=== PATIENT | male | born 1980 | race Caucasian/White ===

== ENCOUNTER 2017-08-12 17:22 | Inpatient (IN) ==
[2017-08-12 18:59] LABS: Basophils # 0.1 K/mcL (0.0-0.2); Basophils % 0.4 %; Eosinophils # 0.1 K/mcL (0.0-0.6); Eosinophils % 0.6 %; Hematocrit 46.7 % (37.5-50.1); Hemoglobin 16.4 g/dL (12.9-16.9); Immature Granulocytes % 0.6 % (0-4); Lymphocytes # 1.9 K/mcL (0.6-4.6); Lymphocytes % 16.2 %; Mean Corpuscular HGB Conc 35.1 g/dL (31.6-35.5); Mean Corpuscular Hemoglobin 30.4 pg (28.0-33.3); Mean Corpuscular Volume 86.5 fL (83.0-100.0); Mean Platelet Volume 9.4 fL (9.4-12.4); Monocytes # 0.7 K/mcL (0.0-1.3); Monocytes % 5.9 %; Platelet Count 239 K/mcL (140-400); Red Cell Distribution Width 13.7 % (11.5-14.5); Segmented Neutrophils % 76.3 %
[2017-08-12 19:02] LABS: Neutrophils # 9.2 K/mcL (1.6-8.9)
[2017-08-12 19:12] LABS: Alanine Aminotransferase 318 Units/L (0-55); Albumin 4.4 g/dL (3.5-5.0); Albumin/Globulin Ratio 1.5 (1.1-2.2); Alkaline Phosphatase 146 Units/L (38-126); Amylase 1016 Units/L (25-125); Aspartate Amino Transferase 161 Units/L (5-34); BUN/Creatinine Ratio 15 (6-26); Bilirubin,Direct 0.6 mg/dL (0.0-0.5); Bilirubin,Indirect 1.1 mg/dL (0.0-1.2); Bilirubin,Total 1.7 mg/dL (0.2-1.2); Blood Urea Nitrogen 13 mg/dL (8-26); Calcium 9.8 mg/dL (8.6-10.8); Carbon Dioxide 24 mEq/L (19-29); Chloride 105 mEq/L (98-109); Globulin 2.9 g/dL (2.4-3.5); Glucose 94 mg/dL (70-99); Osmolality,Calculated 290 (280-300); Potassium 3.5 mEq/L (3.5-4.5); Sodium 140 mEq/L (136-145); Total Protein 7.3 g/dL (6.0-8.3); eGFR For African Americans > 60 (> 60); eGFR For Non-African Americans > 60 (> 60)
[2017-08-12] MEDS ORDERED: 0.9 % Sodium Chloride 1,000 ML IVC ONE (19:25)
[2017-08-12] MEDS ORDERED: *HR* HYDROmorphone (PF) 1 MG/ML SYRINGE IVP ONE (19:25)
[2017-08-12] MEDS ORDERED: Ondansetron 4 MG/2 ML VIAL IVP ONE (19:25)
[2017-08-12 19:27] LABS: Lipase 1570 Units/L (8-78)
[2017-08-12 19:42] LABS: Bilirubin,Urine Small (Negative); Blood,Urine Negative (Negative); Clarity,Urine Cloudy (Clear); Glucose,Urine (UA) Normal (Normal); Ketones,Urine Trace mg/dL (Negative); Leukocyte Esterase,Urine Trace (Negative); Nitrite,Urine Negative (Negative); Protein,Urine Trace mg/dL (Neg-Trace); Specific Gravity,Urine 1.024 (1.010-1.025); Urobilinogen,Urine Normal (Normal)
[2017-08-12 19:44] LABS: Bacteria,Urine None Seen per hpf (None-Few); Hyaline Casts,Urine None Seen per lpf (None-Few); RBC,Urine 0-3 per hpf (0-3); Squamous Epithelial Cell,Urine None Seen per lpf (None-Few); WBC,Urine 0-3 per hpf (0-3)
[2017-08-12 19:45] LABS: Color,Urine Amber (Yellow)
--- NOTE | 2017-08-12 19:47 | Emergency Department Note ---
Disposition Clinical Impression: Pancreatitis Disposition: Admitted As Inpatient Condition: Fair Referrals: Mohit Bowens MD [Primary Care Provider] - Forms: ED Satisfaction Letter, Work/School Release Time of Disposition: 20:59 Abdominal Pain HPI - General Chief Complaint: ED Abdominal Pain Stated Complaint: pancreatitis, sent from PCP Time Seen by Provider: 08/12/17 19:19 Source: patient Nursing Notes Reviewed: Yes Vital Signs Reviewed: Yes - History of Present Illness HPI Narrative: Epigastric pain which started last night at home gradually and is constant and there is no radiation to the back at this time but there was some earlier. Was sent here because of concern for pancreatitis based on her lab test results. The patient denies any fevers or vomiting. He does not drink alcohol. No history of similar episodes. Social history: No smoking or alcohol. Is here with his Pain Scale: 9 - Related Data Home Medications Medication Instructions Recorded Confirmed No Known Home Drugs 08/12/17 08/12/17 Allergies Allergy/AdvReac Type Severity Reaction Status Date / Time No Known Allergies Allergy Verified 08/12/17 18:06 Review of Systems: Constitutional: No fever Vision: No blurred vision ENT: No rhinorrhea Respiratory: No cough Allergic: No allergies : No blood in urine GI: No blood in stool Hematologic: No bruising Dermatologic: No skin rash Musculoskeletal: No pain in the extremities Neuro: No numbness of the extremities Abdominal Pain PMH - Past Medical History Medical history: Reports: no medical history Male Surgical History: Reports: non-contributory - Social History Smoking status: Never smoker Alcohol use: Reports: occasionally Drug use: Reports: none Physical Exam CONSTITUTIONAL: Alert and oriented X3, well-nourished, well appearing, in no apparent distress HEAD: Normocephalic; atraumatic. EYES: PERRL, no scleral icterus. NOSE: The nose is normal in appearance without rhinorrhea RESP: Normal chest excursion with respiration; breath sounds clear and equal bilaterally; no wheezes, rhonchi, or rales CARD: Regular rhythm, without murmurs, rub or gallop ABD: Non-distended; normal appearance , mild to moderate discomfort with palpation epigastric area but soft without rigidity, rebound, guarding. Elsewhere the abdomen is non-tender, soft,without rigidity, rebound or guarding SKIN: Normal for age and race; warm and dry; no apparent lesions - General Limitations: no limitations General appearance: alert, in no apparent distress Course Vital Signs Temperature 99.1 F 08/12/17 18:03 Pulse Rate 82 08/12/17 18:03 Respiratory Rate 16 08/12/17 18:03 Blood Pressure 136/100 08/12/17 18:03 O2 Sat by Pulse Oximetry 96 08/12/17 18:03 Temperature 99.1 F 08/12/17 18:03 Pulse Rate 82 08/12/17 18:03 Respiratory Rate 16 08/12/17 18:03 Blood Pressure 136/100 08/12/17 18:03 O2 Sat by Pulse Oximetry 96 08/12/17 18:03 Oxygen Delivery Oxygen Delivery Room Air Abdominal Pain - MDM Narrative Medical decision making narrative: I did review the initial labs from some mild leukocytosis, lipase is pending, ultrasound is pending. The patient does receive IV fluids and IV pain medicine. January. 1948 I did review the patient's labs showing pancreatitis and I also reviewed the ultrasound which does show cholelithiasis but not cholecystitis. Patient does need to be admitted and I did speak with the hospitalist accepted the patient for admission and we did discuss possibility of inpatient HIDA scan for a GI consultation and this will be done during the patient's hospitalization if necessary and the patient will be nothing by mouth with IV fluids and pain control 2100 - Medical Records Medical records reviewed: Yes I reviewed the patient's medical records. - Lab Data Lab results reviewed: Yes I reviewed the patient's lab results. Result diagrams: 08/12/17 18:50 08/12/17 18:50 Lab Results 08/12/17 08/12/17 08/12/17 Range/Units 18:50 18:50 19:25 WBC 12.0 H D (4.3-11.1) K/mcL RBC 5.40 (4.19-5.50) M/mcL Hgb 16.4 (12.9-16.9) g/dL Hct 46.7 (37.5-50.1) % MCV 86.5 (83.0-100.0) fL MCH 30.4 (28.0-33.3) pg MCHC 35.1 (31.6-35.5) g/dL RDW 13.7 (11.5-14.5) % Plt Count 239 (140-400) K/mcL MPV 9.4 (9.4-12.4) fL Immature Gran % 0.6 (0-4) % Seg Neutrophils % 76.3 % Lymphocytes % 16.2 % Monocytes % 5.9 % Eosinophils % 0.6 % Basophils % 0.4 % Neutrophils # 9.2 H (1.6-8.9) K/mcL Lymphocytes # 1.9 (0.6-4.6) K/mcL Monocytes # 0.7 (0.0-1.3) K/mcL Eosinophils # 0.1 (0.0-0.6) K/mcL Basophils # 0.1 (0.0-0.2) K/mcL Sodium 140 (136-145) mEq/L Potassium 3.5 (3.5-4.5) mEq/L Chloride 105 (98-109) mEq/L Carbon Dioxide 24 (19-29) mEq/L BUN 13 (8-26) mg/dL Creatinine 0.88 (0.72-1.25) mg/dL Est GFR ( Amer) > 60 (> 60) Est GFR (Non-Af Amer) > 60 (> 60) BUN/Creatinine Ratio 15 (6-26) Glucose 94 (70-99) mg/dL Calculated Osmolality 290 (280-300) Calcium 9.8 (8.6-10.8) mg/dL Total Bilirubin 1.7 H (0.2-1.2) mg/dL Direct Bilirubin 0.6 H (0.0-0.5) mg/dL Indirect Bilirubin 1.1 (0.0-1.2) mg/dL AST 161 H (5-34) Units/L ALT 318 H (0-55) Units/L Alkaline Phosphatase 146 H (38-126) Units/L Serum Total Protein 7.3 (6.0-8.3) g/dL Albumin 4.4 (3.5-5.0) g/dL Globulin 2.9 (2.4-3.5) g/dL Albumin/Globulin Ratio 1.5 (1.1-2.2) Amylase 1016 H (25-125) Units/L Lipase 1570 H (8-78) Units/L Urine Color Rosa A (Yellow) Urine Clarity Cloudy A (Clear) Urine pH 6.0 (5.0-8.0) pH Units Ur Specific [place] 1.024 (1.010-1.025) Urine Protein Trace (Neg-Trace) mg/dL Urine Glucose (UA) Normal (Normal) mg/dL Urine Ketones Trace H (Negative) mg/dL Urine Blood Negative (Negative) Urine Nitrite Negative (Negative) Urine Bilirubin Small H (Negative) Urine Urobilinogen Normal (Normal) mg/dL Ur Leukocyte Esterase Trace H (Negative) Urine Microscopic RBC 0-3 (0-3) per hpf Urine Microscopic WBC 0-3 (0-3) per hpf Ur Squamous Epith Cells None Seen (None-Few) per lpf Urine Bacteria None Seen (None-Few) per hpf Hyaline Casts None Seen (None-Few) per lpf Urine Mucus Many H (Few) Ur Culture Indicated? YES A (NO) - Radiology Data Radiology results reviewed: Yes I reviewed the patient's radiology results.
[2017-08-12 19:57] LABS: Mucus,Urine Many (Few)
[2017-08-12] MEDS ORDERED: Ondansetron 4 MG/2 ML VIAL IVP PRN (22:43)
[2017-08-12] MEDS ORDERED: Naloxone 0.4 MG/ML INJ IVP PRN (22:43)
--- NOTE | 2017-08-12 22:43 | Internal Med History&Physical ---
<Renaldo Rogers - Last Filed: 08/13/17 01:38> Date of Encounter: 08/13/17 Time of Encounter: 22:42 Assessment and Plan (1) Pancreatitis Current visit: Yes Status: Acute - Possibly secondary to gallstone obstruction. Some hepatic duct dilation seen on US. - Gallbladder US in ED showed Cholelithiasis and gallbladder wall thickening without additional secondary findings of cholecystitis. The small portion of visualized pancreas has heterogeneous parenchyma, a finding that can be seen with pancreatitis. Minimal intrahepatic biliary dilation without extrahepatic biliary dilation. - Labs show elevated total and direct bili, elevated LFTs, mild WBC elevation. - IVF, pain control, NPO - Lipid panel pending. - Surgery consult for possible cholecystectomy Qualifiers: Chronicity: acute Pancreatitis type: biliary Acute pancreatitis complication: no infection or necrosis Qualified Code(s): K85.10 - Biliary acute pancreatitis without necrosis or infection (2) Cholelithiasis Current visit: Yes Status: Acute - Gallbladder US done in ED. - Evidence of gallstones and gallbladder wall thickening - Elevated Total and direct bili, LFTs - Surgery consult in AM for possible cholecystectomy - MRCP ordered Qualifiers: Cholelithiasis location: bile duct Cholecystitis presence: without cholecystitis Biliary obstruction: without biliary obstruction Qualified Code(s): K80.50 - Calculus of bile duct without cholangitis or cholecystitis without obstruction (3) Transaminitis Current visit: Yes Status: Acute - Elevated LFTs, most likely secondary to gallstones seen on US. - No bile duct dilation seen, however intrahepatic duct dilation. - Consider HIDA scan for improved accuracy - Surgery consult placed. (4) DVT prophylaxis Current visit: Yes Status: Acute - SCDs. Holding Anticoagulation in case of surgery. Internal Medicine - H&P: HPI Chief complaint: abdominal pain Admitted From: Emergency Dept Plans for Post Hospital Care: Home History of present illness: Mr. Collado is a 37 year old male who presents to ED with a complaint of abdominal pain since last evening. He states he was sitting at home eating pizza when he began to experience sudden onset, sharp abdominal pain that has been constant since onset. He also has had nausea with 1 episode of bilious vomiting. He denies any symptoms of fevers, chills, CP, SOB, LE swelling. Last BM was yesterday morning which was normal for him. No evidence of blood or black stools. He has never experienced this before. States rare alcohol intake, no family history of pancreatitis. Mother had gallbladder removed. In the ED, vitals unremarkable. Labs show mild leukocytosis, elevated lipase/ amylase in 1500s, elevated bili and LFTs. Gallbladder US showed Cholelithiasis and gallbladder wall thickening without additional secondary findings of cholecystitis. The small portion of visualized pancreas has heterogeneous parenchyma, a finding that can be seen with pancreatitis. Minimal intrahepatic biliary dilation without extrahepatic biliary dilation. Past Med Surg Social Fam HX - Past Medical History Medical history: no medical history - Past Surgical History Surgical History: other (gastric sleeve) - Social History Smoking Status: Never smoker Alcohol use: occasionally Drug use: none - Family History Father Adopted: [place]: sherin Age: 68 Living Status: Still Living Hx Family Endocrine Disorder: Yes (diabetes) Mother Adopted: [place]: oneil Age: 65 Hx Family Endocrine Disorder: Yes (gall bladder removed) Internal Medicine - H&P: Meds No Known Home Drugs 08/12/17 [History] 3 Allergy/AdvReac Type Severity Reaction Status Date / Time No Known Allergies Allergy Verified 08/12/17 18:06 All Systems PM: A 10-system review of systems was performed and is negative for pertinent findings except as documented above in the HPI. - Constitutional Constitutional: no anorexia, no chills, no fatigue, no fever(s), no falls, no lethargy, no malaise - Cardiovascular Cardiovascular ROS IM: no chest pain, no diaphoresis, no dyspnea, no dyspnea on exertion, no palpitations - Respiratory Respiratory: no cough, no dyspnea, no dyspnea on exertion - Gastrointestinal Gastrointestinal: abdominal pain, nausea, vomiting, no change in bowel habits, no change in stool character, no coffee ground emesis, no constipation, no diarrhea, no dyspepsia, no hematemesis, no hematochezia, no loose stools, no melena - Musculoskeletal Musculoskeletal ROS IM: no muscle weakness, no numbness, no tingling - Neurological Neurological ROS: no numbness, no tingling, no weakness - Constitutional Vitals: Temp Pulse Resp BP Pulse Ox 98.4 F 65 16 166/89 91 08/12/17 21:22 08/12/17 21:22 08/12/17 21:22 08/12/17 21:22 08/12/17 21:22 Exam: Gen.: Vitals noted. No acute distress. AAOx3 HEENT: oropharynx clear, Normocephalic, atraumatic, MMM Cardiac: RRR, no murmur, +S1/S2, rare PVCs Pulmonary: CTA bilaterally, no wheezes, rales or rhonchi, equal chest expansion Abdomen: soft, mildly tender in epigastric and LLQ, BS noted, no guarding, no rebound. MSK: ROM intact, no joint swelling noted Extremities: no BLE edema, nontender calf, no cyanosis or clubbing Neuro: A&Ox3, moves all extremities, no focal deficits Psych: Appropriate mood and behavior Internal Med - H&P Results - Labs CBC & Chem 7: 08/12/17 18:50 08/12/17 18:50 <Ricci Clement - Last Filed: 08/13/17 03:13> Date of Encounter: 08/13/17 Internal Medicine - H&P: HPI History of present illness: Mr. Collado is a 37 year old male All Systems PM: A 10-system review of systems was performed and is negative for pertinent findings except as documented above in the HPI. - Constitutional Vitals: Temp Pulse Resp BP Pulse Ox 98.3 F 62 15 145/83 95 08/12/17 23:42 08/12/17 23:42 08/12/17 23:42 08/12/17 23:42 08/12/17 23:42 Internal Med - H&P Results - Labs CBC & Chem 7: 08/12/17 18:50 08/12/17 18:50 - Attending Attestation Acute gallstone pancreatitis Increase fluids to 200 mL/h Nothing by mouth, pain control, surgery consult will need to be called in the morning to consider cholecystectomy either as inpatient or outpatient Stable Protonix for GI prophylaxis. Subcutaneous heparin for DVT prophylaxis. He will be admitted as inpatient, expected to stay more than 2 midnights. Full code. Time spent on this admission 40 minutes I examined this patient and my medical decision-making was reviewed with the Resident Physician. I agree with the documented findings, disposition and treatment plan as described except to the extent set forth below.
[2017-08-12] MEDS ORDERED: 0.9 % Sodium Chloride 1,000 ML IVC SCH (22:45)
[2017-08-12] MEDS ORDERED: *HR* HYDROcodone/Acet 5/325 mg TABLET PO PRN (23:08)
[2017-08-12] MEDS ORDERED: Acetaminophen 325 MG TABLET PO PRN (23:08)
[2017-08-13] MEDS: *HR* HYDROmorphone (PF) 1 MG/ML SYRINGE IVP PRN ×2 (00:13→12:45)
[2017-08-13] MEDS ORDERED: 0.9 % Sodium Chloride 1,000 ML IVC SCH (01:23)
[2017-08-13 04:42] LABS: Basophils % 0.4 %; Eosinophils # 0.1 K/mcL (0.0-0.6); Eosinophils % 0.6 %; Hematocrit 41.1 % (37.5-50.1); Immature Granulocytes % 0.6 % (0-4); Lymphocytes # 1.8 K/mcL (0.6-4.6); Lymphocytes % 23.5 %; Mean Corpuscular HGB Conc 33.8 g/dL (31.6-35.5); Mean Corpuscular Hemoglobin 30.2 pg (28.0-33.3); Mean Corpuscular Volume 89.3 fL (83.0-100.0); Mean Platelet Volume 9.5 fL (9.4-12.4); Monocytes # 0.6 K/mcL (0.0-1.3); Monocytes % 7.5 %; Neutrophils # 5.2 K/mcL (1.6-8.9); Platelet Count 192 K/mcL (140-400); Red Cell Distribution Width 13.8 % (11.5-14.5); Segmented Neutrophils % 67.4 %
[2017-08-13 04:44] LABS: Hemoglobin 13.9 g/dL (12.9-16.9)
[2017-08-13 04:59] LABS: Alanine Aminotransferase 223 Units/L (0-55); Albumin 3.6 g/dL (3.5-5.0); Albumin/Globulin Ratio 1.5 (1.1-2.2); Alkaline Phosphatase 114 Units/L (38-126); Aspartate Amino Transferase 83 Units/L (5-34); BUN/Creatinine Ratio 19 (6-26); Bilirubin,Total 1.5 mg/dL (0.2-1.2); Blood Urea Nitrogen 15 mg/dL (8-26); Calcium 8.9 mg/dL (8.6-10.8); Carbon Dioxide 28 mEq/L (19-29); Chloride 105 mEq/L (98-109); Chol/HDL Ratio 5.5 (0-4.9); Cholesterol 149 mg/dL (< 200); Globulin 2.4 g/dL (2.4-3.5); Glucose 91 mg/dL (70-99); HDL Cholesterol 27 mg/dL (40-59); LDL Cholesterol,Calculated 103 mg/dL (0-99); Osmolality,Calculated 292 (280-300); Potassium 3.7 mEq/L (3.5-4.5); Sodium 141 mEq/L (136-145); Triglycerides 97 mg/dL (< 150); eGFR For African Americans > 60 (> 60); eGFR For Non-African Americans > 60 (> 60)
[2017-08-13] MEDS: *HR* Heparin 5,000 UNIT/ML VIAL SQ SCH ×2 (05:32→17:49)
[2017-08-13] MEDS: Pantoprazole 40 MG VIAL IVP SCH (09:21)
--- NOTE | 2017-08-13 10:55 | General Surgery Consult Note ---
<Alec Rinaldi - Last Filed: 08/13/17 14:43> Date of Encounter: 08/13/17 Time of Encounter: 10:30 Assessment and Plan (1) Pancreatitis Current Visit: Yes Status: Acute Patient's pancreatitis likely secondary to gallstone obstruction. Hepatic duct dilation seen on US. Part of the pancreas was noted to have a heterogeneous parenchyma, a finding that can be seen with pancreatitis. Labs on admission on 08/12/17: Amylase 1016, lipase 1570, AST 161, ALT 318, white count 12.0. Labs on 08/13/17: Lipase 548, White count 7.7. Plan: -Start clear liquid diet, NPO at midnight for surgery tomorrow. -0.9 saline at 125 mL per hour. -Pain control: Tylenol 650 PO q6 (pain 1-3), Percocet 5 325 PO Q4 (pain 4-6), Dilaudid 1 mg q6 for severe pain. -Zofran 4 mg IV every 6 hours. -Protonix IV 40 mg IV daily. -Repeat labs: CBC, amylase/lipase, LFTs. -Patient will be taken for cholecystectomy tomorrow. Qualifiers: Chronicity: acute Pancreatitis type: biliary Acute pancreatitis complication: no infection or necrosis Qualified Code(s): K85.10 - Biliary acute pancreatitis without necrosis or infection (2) Cholelithiasis Current Visit: Yes Status: Acute Ultrasound performed in the emergency department on 08/12/17 revealed the presence of cholelithiasis without evidence of cholecystitis. Minimal intrahepatic duct dilation. -Elevated total and direct bilirubin. -Elevated liver function tests. -Repeat AM labs. -Patient will be taken for cholecystectomy tomorrow to prevent recurrent pancreatits. Qualifiers: Cholelithiasis location: bile duct Cholecystitis presence: without cholecystitis Biliary obstruction: without biliary obstruction Qualified Code(s): K80.50 - Calculus of bile duct without cholangitis or cholecystitis without obstruction (3) Transaminitis Current Visit: Yes Status: Acute Patient had elevated liver enzymes upon admission. -Labs on 08/12/17: AST 161, ALT 318, alkaline phosphatase 146. -Labs on 08/13/17: AST 83, ALT 23, alkaline phosphatase 114. -Patient shows no signs of scleral icterus on physical examination. -Elevated LFTs are likely secondary to gallstones seen on ultrasound. -Repeat AM labs. (4) DVT prophylaxis Current Visit: Yes Status: Acute SCDs. Holding anticoagulation in preparation for surgery. History of Present Illness Consult date: 08/13/17 Reason for consult: abdominal pain History of present illness: Mr. Collado is a 37-year-old male who presented to the ED on 08/12/17 with chief complaint of epigastric abdominal pain since last evening. Patient states that his pain started when he was sitting at home and eating pizza when he began to experience a sudden sharp abdominal pain. He notes that this pain was constant , nonradiating, 06/20, localized to the mid epigastric region. Patient vomited once after he experienced this abdominal pain. Patient admits that the night prior, he had vomited once after eating boneless swings. Patient denied having any abdominal pain at that time. He did not feel nauseous after this episode. Upon arrival to the emergency department, patient still complained of sharp epigastric pain. He denied having any fever, chills, shortness of breath, or diaphoresis. He reports that his last bowel movement was 2 days ago in the morning. He denied having any dark colored stools at that time. Patient states that he has never experienced this type of pain before. He denies being a smoker. He admits to being an occasional drinker. Patient was seen on . On physical examination this morning, patient states that his symptoms have completely resolved. He denies having any abdominal pain. He denies having any fever, chills, nausea, or vomiting. Physical exam unremarkable. Patient has been passing flatus. He denies having any bowel movement this morning. Past Med Surg Social Fam HX - Past Medical History Medical history: no medical history - Past Surgical History Surgical History: other (gastric sleeve) - Social History Smoking Status: Never smoker Alcohol use: occasionally Drug use: none - Family History Father Adopted: [place]: sherin Age: 68 Living Status: Still Living Hx Family Endocrine Disorder: Yes (diabetes) Mother Adopted: [place]ina: oneil Age: 65 Hx Family Endocrine Disorder: Yes (gall bladder removed) Medications and Allergies No Known Home Drugs 08/12/17 [History] 3 Allergy/AdvReac Type Severity Reaction Status Date / Time No Known Allergies Allergy Verified 08/12/17 18:06 Review of Systems All systems PM: A 10-system review of systems was performed and is negative for pertinent findings except as documented above in the HPI. - Constitutional as per HPI, no chills, no fatigue, no fever(s), no malaise, no weakness - Cardiovascular as per HPI, no chest pain, no diaphoresis, no pedal edema, no radiating pain, no rapid heart rate, no syncope - Respiratory as per HPI, no cough, no dyspnea, no dyspnea on exertion, no wheezing - Gastrointestinal as per HPI, no abdominal pain, no early satiety General Surgery Exam Initial Vital Signs Temp Pulse Resp BP Pulse Ox 99.1 F 82 16 136/100 96 08/12/17 18:03 08/12/17 18:03 08/12/17 18:03 08/12/17 18:03 08/12/17 18:03 - General physical appearance well developed, well nourished, no distress - Eyes negative: icteric - Respiratory normal expansion, normal respiratory effort, clear to auscultation - Cardiovascular Cardiovascular exam: Present: RRR, no murmurs/rubs/gallops - Abdomen Abdomen general surgery: Present: bowel sounds present, soft, non tender - Integumentary Integumentary general surgery: Present: warm and dry - Psychiatric Psychiatric general surgery: Present: A&Ox3, appropriate, oriented to person, oriented to time, speech is normal Exam Initial Vital Signs Temp Pulse Resp BP Pulse Ox 99.1 F 82 16 136/100 96 08/12/17 18:03 08/12/17 18:03 08/12/17 18:03 08/12/17 18:03 08/12/17 18:03 - Respiratory normal expansion, normal respiratory effort, clear to percussion, clear to auscultation Results - Labs 08/13/17 04:09 08/13/17 04:09 Abnormal lab results Total Bilirubin 1.5 mg/dL (0.2-1.2) H 08/13/17 04:09 Direct Bilirubin 0.6 mg/dL (0.0-0.5) H 08/12/17 18:50 AST 83 Units/L (5-34) H 08/13/17 04:09 ALT 223 Units/L (0-55) H 08/13/17 04:09 LDL Cholesterol, Calc 103 mg/dL (0-99) H 08/13/17 04:09 HDL Cholesterol 27 mg/dL (40-59) L 08/13/17 04:09 Cholesterol/HDL Ratio 5.5 (0-4.9) H 08/13/17 04:09 Amylase 1016 Units/L (25-125) H 08/12/17 18:50 Lipase 548 Units/L (8-78) H 08/13/17 04:09 Urine Color Rosa (Yellow) A 08/12/17 19:25 Urine Clarity Cloudy (Clear) A 08/12/17 19:25 Urine Ketones Trace mg/dL (Negative) H 08/12/17 19:25 Urine Bilirubin Small (Negative) H 08/12/17 19:25 Ur Leukocyte Esterase Trace (Negative) H 08/12/17 19:25 Urine Mucus Many (Few) H 08/12/17 19:25 Ur Culture Indicated? YES (NO) A 08/12/17 19:25 Diabetes panel 08/13/17 Range/Units 04:09 Sodium 141 (136-145) mEq/L Potassium 3.7 (3.5-4.5) mEq/L Chloride 105 (98-109) mEq/L Carbon Dioxide 28 (19-29) mEq/L BUN 15 (8-26) mg/dL Creatinine 0.80 (0.72-1.25) mg/dL Glucose 91 (70-99) mg/dL Calcium 8.9 (8.6-10.8) mg/dL AST 83 H (5-34) Units/L ALT 223 H (0-55) Units/L Alkaline Phosphatase 114 (38-126) Units/L Albumin 3.6 (3.5-5.0) g/dL Triglycerides 97 (< 150) mg/dL HDL Cholesterol 27 L (40-59) mg/dL Calcium panel 08/13/17 Range/Units 04:09 Calcium 8.9 (8.6-10.8) mg/dL Albumin 3.6 (3.5-5.0) g/dL Pituitary panel 08/13/17 Range/Units 04:09 Sodium 141 (136-145) mEq/L Potassium 3.7 (3.5-4.5) mEq/L Chloride 105 (98-109) mEq/L Carbon Dioxide 28 (19-29) mEq/L BUN 15 (8-26) mg/dL Creatinine 0.80 (0.72-1.25) mg/dL Glucose 91 (70-99) mg/dL Calcium 8.9 (8.6-10.8) mg/dL Adrenal panel 08/13/17 Range/Units 04:09 Sodium 141 (136-145) mEq/L Potassium 3.7 (3.5-4.5) mEq/L Chloride 105 (98-109) mEq/L Carbon Dioxide 28 (19-29) mEq/L BUN 15 (8-26) mg/dL Creatinine 0.80 (0.72-1.25) mg/dL Glucose 91 (70-99) mg/dL Calcium 8.9 (8.6-10.8) mg/dL Total Bilirubin 1.5 H (0.2-1.2) mg/dL AST 83 H (5-34) Units/L ALT 223 H (0-55) Units/L Alkaline Phosphatase 114 (38-126) Units/L Albumin 3.6 (3.5-5.0) g/dL All other labs normal. Consult Discharge Plan - Plan Referrals: Mohit Bowens MD [Primary Care Provider] - <Bibi Anders - Last Filed: 08/14/17 18:13> Date of Encounter: 08/13/17 Assessment and Plan (1) Gallstone pancreatitis Current Visit: Yes Status: Acute discussed with patient that his US shows stones in his gallbladder and it is most likely the cause of his pancreatitis. He has no EtOH history, TG wnl, no home meds. Will plan laparoscopic cholecystectomy with cholangiograms, possible open, risks and benefits discussed and patient wishes to proceed clears today npo midnight prn pain /antiemetic control gi/dvt prophylasix am labs serial abdominal exams History of Present Illness History of present illness: patient is 37 yo male with a less than 48 hr history of epigastric pain that radiated to his back. Pain was sharp. He had nausea and emesis. No diarrhea. No fevers chills or night sweats. Due to the pain he presented to ED and was found to have pancreatitis. TG level wnl. Lipase trending down, pain improved today. US gallbladder shows cholelithiasis. Past Med Surg Social Fam HX - Past Medical History Source: patient Medical history: other (obesity) Psychiatric history: no psych history - Past Surgical History Surgical History: other (lap gastric sleeve 2010) - Social History Occupational status: employed Current living situation: Home, With Family Activity Level: Independent ambulation Review of Systems All systems PM: reviewed and no additional remarkable complaints except as stated All systems PM: A 10-system review of systems was performed and is negative for pertinent findings except as documented above in the HPI. General Surgery Exam Initial Vital Signs Temp Pulse Resp BP Pulse Ox 99.1 F 82 16 136/100 96 08/12/17 18:03 08/12/17 18:03 08/12/17 18:03 08/12/17 18:03 08/12/17 18:03 - General physical appearance well developed, well nourished, no distress - Eyes PERRL, normal ocular movement - ENT normal mucosa, normocephalic - Neck trachea midline - Respiratory normal expansion, clear to auscultation - Cardiovascular Cardiovascular exam: Present: RRR - Abdomen Abdomen general surgery: Present: bowel sounds present, soft, non tender. Absent: distended, guarding, rebound - Integumentary Integumentary general surgery: Present: warm and dry, no abnormal pigmentation - Neurologic Present: CN 2-12 grossly intact - Musculoskeletal Present: normal posture - Psychiatric Psychiatric general surgery: Present: A&Ox3, speech is normal Exam Initial Vital Signs Temp Pulse Resp BP Pulse Ox 99.1 F 82 16 136/100 96 08/12/17 18:03 08/12/17 18:03 08/12/17 18:03 08/12/17 18:03 08/12/17 18:03 Results - Labs 08/14/17 05:13 08/13/17 04:09 Abnormal lab results Total Bilirubin 2.2 mg/dL (0.2-1.2) H 08/14/17 05:13 Direct Bilirubin 0.8 mg/dL (0.0-0.5) H 08/14/17 05:13 Indirect Bilirubin 1.4 mg/dL (0.0-1.2) H 08/14/17 05:13 ALT 138 Units/L (0-55) H 08/14/17 05:13 Albumin 3.4 g/dL (3.5-5.0) L 08/14/17 05:13 LDL Cholesterol, Calc 103 mg/dL (0-99) H 08/13/17 04:09 HDL Cholesterol 27 mg/dL (40-59) L 08/13/17 04:09 Cholesterol/HDL Ratio 5.5 (0-4.9) H 08/13/17 04:09 Urine Color Rosa (Yellow) A 08/12/17 19:25 Urine Clarity Cloudy (Clear) A 08/12/17 19:25 Urine Ketones Trace mg/dL (Negative) H 08/12/17 19:25 Urine Bilirubin Small (Negative) H 08/12/17 19:25 Ur Leukocyte Esterase Trace (Negative) H 08/12/17 19:25 Urine Mucus Many (Few) H 08/12/17 19:25 Ur Culture Indicated? YES (NO) A 08/12/17 19:25 Diabetes panel 08/14/17 Range/Units 05:13 AST 30 (5-34) Units/L ALT 138 H (0-55) Units/L Alkaline Phosphatase 105 (38-126) Units/L Albumin 3.4 L (3.5-5.0) g/dL Calcium panel 08/14/17 Range/Units 05:13 Albumin 3.4 L (3.5-5.0) g/dL Adrenal panel 08/14/17 Range/Units 05:13 Total Bilirubin 2.2 H (0.2-1.2) mg/dL AST 30 (5-34) Units/L ALT 138 H (0-55) Units/L Alkaline Phosphatase 105 (38-126) Units/L Albumin 3.4 L (3.5-5.0) g/dL All other labs normal. - Imaging US - abdomen: report reviewed - Attending Attestation I examined this patient and my medical decision-making was reviewed with the Resident Physician. I agree with the documented findings, disposition and treatment plan as described except to the extent set forth below.
[2017-08-13] MEDS: 0.9 % Sodium Chloride 1,000 ML IVC SCH ×2 (12:44→21:38)
--- NOTE | 2017-08-13 14:06 | Internal Med Progress Note ---
Date of Encounter: 08/13/17 Time of Encounter: 09:35 - Assessment and plan (1) Pancreatitis Current Visit: Yes Status: Acute Assessment and plan: Acute gallstone pancreatitis. He knows CBD dilation. Consulted surgery for recommendations regarding laparoscopic cholecystectomy. Continue symptomatic care. Start clear liquids . Lipase is trending down. Qualifiers: Chronicity: acute Pancreatitis type: biliary Acute pancreatitis complication: no infection or necrosis Qualified Code(s): K85.10 - Biliary acute pancreatitis without necrosis or infection (2) Cholelithiasis Current Visit: Yes Status: Acute Assessment and plan: Will consult surgery. Patient will most likely need laparoscopic cholecystectomy. Qualifiers: Cholelithiasis location: bile duct Cholecystitis presence: without cholecystitis Biliary obstruction: without biliary obstruction Qualified Code(s): K80.50 - Calculus of bile duct without cholangitis or cholecystitis without obstruction (3) DVT prophylaxis Current Visit: Yes Status: Acute Assessment and plan: With subcutaneous heparin - Subjective Interval history: Patient is awake and alert. He feels much better today. Still has some abdominal discomfort but much improved compared to yesterday. Denies any history of alcohol abuse. The patient has not been on any chronic medications and has never had similar symptoms before. - Constitutional Vitals: Temp Pulse Resp BP Pulse Ox 97.9 F 78 16 155/97 95 08/13/17 10:52 08/13/17 10:52 08/13/17 10:52 08/13/17 10:52 08/13/17 10:52 General appearance: Present: cooperative, mild distress, A&O X 3, answers questions appropriately - Neck Neck exam general surgery: Present: supple, trachea midline. Absent: lymphadenopathy - Respiratory Respiratory exam: Present: CTAB. Absent: accessory muscle use, rales, rhonchi, wheezes - Cardiovascular Cardiovascular exam: Present: RRR, +S1, +S2. Absent: diastolic murmur, gallop, rubs, systolic murmur - GI/Abdominal GI/Abdominal exam: Present: normal bowel sounds, soft, tenderness (Epigastric), no peritoneal signs. Absent: distended - Extremities Exam Extremities exam: Present: warm, radial pulses palpable and symmetrical. Absent : calf tenderness, cyanotic, pedal edema - Neurological Exam Neurological exam: Present: alert, CN II-XII intact, oriented X3, no focal deficits, strengths equal and symetr throughout. Absent: facial droop, speech deficit Internal Medicine: Result - Labs CBC & Chem 7: 08/13/17 04:09 08/13/17 04:09 Labs: Short CBC 08/13/17 Range/Units 04:09 WBC 7.7 (4.3-11.1) K/mcL Hgb 13.9 D (12.9-16.9) g/dL Hct 41.1 (37.5-50.1) % Plt Count 192 (140-400) K/mcL Neutrophils # 5.2 (1.6-8.9) K/mcL BMP 08/13/17 04:09 Sodium 141 Potassium 3.7 Chloride 105 Carbon Dioxide 28 BUN 15 Creatinine 0.80 Glucose 91 Calcium 8.9 Liver Function 08/13/17 Range/Units 04:09 Total Bilirubin 1.5 H (0.2-1.2) mg/dL AST 83 H (5-34) Units/L ALT 223 H (0-55) Units/L Alkaline Phosphatase 114 (38-126) Units/L Albumin 3.6 (3.5-5.0) g/dL Consult Discharge Plan - Plan Referrals: Mohit Bowens MD [Primary Care Provider] -
[2017-08-13] MEDS ORDERED: Temazepam 15 MG CAPSULE PO ONE (21:56)
[2017-08-14 05:27] LABS: Basophils % 0.5 %; Eosinophils # 0.1 K/mcL (0.0-0.6); Eosinophils % 0.9 %; Hematocrit 40.3 % (37.5-50.1); Immature Granulocytes % 0.8 % (0-4); Lymphocytes # 1.8 K/mcL (0.6-4.6); Lymphocytes % 22.9 %; Mean Corpuscular HGB Conc 34.7 g/dL (31.6-35.5); Mean Corpuscular Hemoglobin 30.2 pg (28.0-33.3); Mean Corpuscular Volume 86.9 fL (83.0-100.0); Mean Platelet Volume 9.4 fL (9.4-12.4); Monocytes # 0.6 K/mcL (0.0-1.3); Monocytes % 7.8 %; Neutrophils # 5.2 K/mcL (1.6-8.9); Platelet Count 184 K/mcL (140-400); Red Blood Count 4.64 M/mcL (4.19-5.50); Red Cell Distribution Width 13.1 % (11.5-14.5); Segmented Neutrophils % 67.1 %
[2017-08-14 05:41] LABS: Albumin 3.4 g/dL (3.5-5.0); Albumin/Globulin Ratio 1.2 (1.1-2.2); Bilirubin,Direct 0.8 mg/dL (0.0-0.5); Bilirubin,Indirect 1.4 mg/dL (0.0-1.2); Bilirubin,Total 2.2 mg/dL (0.2-1.2); Globulin 2.9 g/dL (2.4-3.5); Total Protein 6.3 g/dL (6.0-8.3)
[2017-08-14] MEDS: *HR* Heparin 5,000 UNIT/ML VIAL SQ SCH ×2 (06:14→17:46)
[2017-08-14] MEDS: 0.9 % Sodium Chloride 1,000 ML IVC SCH ×2 (08:02→16:40)
[2017-08-14] MEDS: Pantoprazole 40 MG VIAL IVP SCH (08:03)
[2017-08-14] MEDS ORDERED: *HR* Midazolam HCl 2 MG/2 ML VIAL ONE (09:12)
[2017-08-14] MEDS ORDERED: *HR* Succinylcholine 200 MG/10 ML VIAL IVP ONE (09:12)
[2017-08-14] MEDS ORDERED: *HR* FentaNYL (PF) 100 MCG/2 ML VIAL ONE (09:12)
[2017-08-14] MEDS ORDERED: Lidocaine -MPF 2% 2 ML VIAL ONE (09:12)
[2017-08-14] MEDS ORDERED: Lidocaine -MPF 4% 5 ML AMPUL ONE (09:12)
[2017-08-14] MEDS ORDERED: *HR* Propofol 200 MG/20 ML VIAL IVP ONE (09:13)
--- NOTE | 2017-08-14 11:14 | General Surgery Progress Note ---
<Alec Rinaldi - Last Filed: 08/14/17 11:18> Date of Encounter: 08/14/17 Time of Encounter: 10:00 - Assessment and Plan (1) Pancreatitis Current Visit: Yes Status: Acute Patient's pancreatitis likely secondary to gallstone obstruction. Hepatic duct dilation seen on US. Part of the pancreas was noted to have a heterogeneous parenchyma, a finding that can be seen with pancreatitis. Labs on admission on 08/12/17: Amylase 1016, lipase 1570, AST 161, ALT 318, white count 12.0. Labs on 08/13/17: Lipase 548, White count 7.7. Labs on 08/14/17: Lipase 68, amylase 109, white count 7.7, AST 30, ALT 138. Plan: -Patient NPO. Plan for surgery today. -0.9 saline at 125 mL per hour. -Pain control: Tylenol 650 PO q6 (pain 1-3), Percocet 5 325 PO Q4 (pain 4-6), Dilaudid 1 mg q6 for severe pain. -Zofran 4 mg IV every 6 hours. -Protonix IV 40 mg IV daily. -Patient will be taken for cholecysectomy for the prevention of recurrent pancreatitis. Qualifiers: Chronicity: acute Pancreatitis type: biliary Acute pancreatitis complication: no infection or necrosis Qualified Code(s): K85.10 - Biliary acute pancreatitis without necrosis or infection (2) Cholelithiasis Current Visit: Yes Status: Acute Ultrasound performed in the emergency department on 08/12/17 revealed the presence of cholelithiasis without evidence of cholecystitis. Minimal intrahepatic duct dilation. -Bilirubin levels on 08/14/17: Total bilirubin 2.2, direct bilirubin 0.8. -Patient will need cholecystectomy to prevent recurrent pancreatitis. Qualifiers: Cholelithiasis location: bile duct Cholecystitis presence: without cholecystitis Biliary obstruction: without biliary obstruction Qualified Code(s): K80.50 - Calculus of bile duct without cholangitis or cholecystitis without obstruction (3) Transaminitis Current Visit: Yes Status: Acute Patient had elevated liver enzymes upon admission. -Labs on 08/12/17: AST 161, ALT 318, alkaline phosphatase 146. -Labs on 08/13/17: AST 83, ALT 23, alkaline phosphatase 114. -Patient shows no signs of scleral icterus on physical examination. -Elevated LFTs are likely secondary to gallstones seen on ultrasound. -Labs on 08/14/17: AST 30, Alt 138. (4) DVT prophylaxis Current Visit: Yes Status: Acute SCDs. Holding anticoagulation in preparation for surgery. Subjective Patient reports: no new complaints, feels better Narrative: Patient was seen and examined at bedside this morning. He reports that he is feeling much better today. Patient denies having any nausea or vomiting. He says that his abdominal pain has completely subsided. Physical exam unremarkable. He has no complaints at this time. Objective Vital Signs - Last 8 Hours Temp Pulse Resp BP Pulse Ox 08/14/17 06:44 97.8 F 87 18 149/96 97 08/14/17 04:35 98.9 F 76 15 146/89 97 Intake and Output 08/13/17 08/14/17 08/14/17 23:59 07:59 15:59 Intake Total 1000 / 1000 1000 / 1000 Output Total 0 / 0 900 / 900 Balance 1000 / 1000 100 / 100 Intake: IV Fluids 1000 / 1000 1000 / 1000 0.9 % Sodium Chloride 1,000 ML 1000 / 1000 1000 / 1000 @ 100 mls/hr IVC .Q10H [facility] Rx#: [id number] Oral 0 / 0 0 / 0 Output: Urine 0 / 0 900 / 900 Other: Weight 106.9 kg Blood Glucose* 82 Patient Weight 08/14/17 23:59 Weight 106.9 kg - General physical appearance well developed, well nourished, no distress - Neck Neck exam: no masses, trachea midline, no lymphadectomy - Cardiovascular Cardiovascular exam: Present: RRR, no murmurs/rubs/gallops - Abdomen Abdomen: Present: bowel sounds present, soft, non tender Additional Comments: No tenderness to palpation - Labs 08/14/17 05:13 08/13/17 04:09 Diabetes panel 08/14/17 Range/Units 05:13 AST 30 (5-34) Units/L ALT 138 H (0-55) Units/L Alkaline Phosphatase 105 (38-126) Units/L Albumin 3.4 L (3.5-5.0) g/dL Calcium panel 08/14/17 Range/Units 05:13 Albumin 3.4 L (3.5-5.0) g/dL Adrenal panel 08/14/17 Range/Units 05:13 Total Bilirubin 2.2 H (0.2-1.2) mg/dL AST 30 (5-34) Units/L ALT 138 H (0-55) Units/L Alkaline Phosphatase 105 (38-126) Units/L Albumin 3.4 L (3.5-5.0) g/dL Consult Discharge Plan - Plan Referrals: Mohit Bowens MD [Primary Care Provider] - <Bibi Anders - Last Filed: 08/14/17 18:08> Date of Encounter: 08/14/17 - Assessment and Plan (1) Gallstone pancreatitis Current Visit: Yes Status: Acute planning OR today for laparoscopic cholecystomy with intraop cholangiograms, discussed yesterday with patient Objective Vital Signs - Last 8 Hours Temp Pulse Resp BP Pulse Ox 08/14/17 15:50 97.4 F L 79 16 138/82 96 08/14/17 15:37 97.7 F 80 12 135/92 98 08/14/17 15:27 78 12 130/88 97 08/14/17 15:17 72 12 137/93 97 08/14/17 15:07 97.1 F L 73 12 138/88 97 08/14/17 14:57 87 12 133/86 99 08/14/17 14:47 83 12 133/92 95 08/14/17 14:37 97.8 F 86 12 127/90 98 08/14/17 11:23 98.8 F 79 16 149/97 95 Intake and Output 08/14/17 08/14/17 08/14/17 07:59 15:59 23:59 Intake Total 1000 / 1000 Output Total 900 / 900 Balance 100 / 100 -30 / -30 Intake: IV Fluids 1000 / 1000 0.9 % Sodium Chloride 1,000 ML 1000 / 1000 @ 100 mls/hr IVC .Q10H [facility] Rx#: [id number] Mefoxin 2,000 MG In Water for inj. (sterile) 10 ML @ 150 mls/ hr IVP Q8HR [facility] Rx#:[id number] Oral 0 / 0 Output: Urine 900 / 900 Estimated Blood Loss 30 Other: Meal NPO Weight 106.9 kg Blood Glucose* 82 77 Patient Weight 08/14/17 23:59 Weight 106.9 kg - Labs 08/14/17 05:13 08/13/17 04:09 Diabetes panel 08/14/17 Range/Units 05:13 AST 30 (5-34) Units/L ALT 138 H (0-55) Units/L Alkaline Phosphatase 105 (38-126) Units/L Albumin 3.4 L (3.5-5.0) g/dL Calcium panel 08/14/17 Range/Units 05:13 Albumin 3.4 L (3.5-5.0) g/dL Adrenal panel 08/14/17 Range/Units 05:13 Total Bilirubin 2.2 H (0.2-1.2) mg/dL AST 30 (5-34) Units/L ALT 138 H (0-55) Units/L Alkaline Phosphatase 105 (38-126) Units/L Albumin 3.4 L (3.5-5.0) g/dL - Attending Attestation I examined this patient and my medical decision-making was reviewed with the Resident Physician. I agree with the documented findings, disposition and treatment plan as described except to the extent set forth below.
--- NOTE | 2017-08-14 12:09 | Anesthesia Evaluation PreOp ---
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 Other Medical History: Denies Any Significant HX Anesthesia History: No Prior Anesthetic Complications, Past Anesthesia ( Bariatric Gastric sleeve 2010) Alcohol Use: occasionally Drug use: none Medications and Allergies No Known Home Drugs 08/12/17 [History] 3 Allergy/AdvReac Type Severity Reaction Status Date / Time No Known Allergies Allergy Verified 08/12/17 18:06 - Meds/Allergy Pre-op Review Medications Reviewed: Yes Allergies Reviewed: Yes Beta Blockers on Current Med List: No Anesthesia Results - Labs 08/14/17 05:13 08/13/17 04:09 Laboratory Results WBC 7.7 K/mcL (4.3-11.1) 08/14/17 05:13 RBC 4.64 M/mcL (4.19-5.50) 08/14/17 05:13 Hgb 14.0 g/dL (12.9-16.9) 08/14/17 05:13 Hct 40.3 % (37.5-50.1) 08/14/17 05:13 MCV 86.9 fL (83.0-100.0) 08/14/17 05:13 MCH 30.2 pg (28.0-33.3) 08/14/17 05:13 MCHC 34.7 g/dL (31.6-35.5) 08/14/17 05:13 RDW 13.1 % (11.5-14.5) 08/14/17 05:13 Plt Count 184 K/mcL (140-400) 08/14/17 05:13 MPV 9.4 fL (9.4-12.4) 08/14/17 05:13 Immature Gran % 0.8 % (0-4) 08/14/17 05:13 Seg Neutrophils % 67.1 % 08/14/17 05:13 Lymphocytes % 22.9 % 08/14/17 05:13 Monocytes % 7.8 % 08/14/17 05:13 Eosinophils % 0.9 % 08/14/17 05:13 Basophils % 0.5 % 08/14/17 05:13 Neutrophils # 5.2 K/mcL (1.6-8.9) 08/14/17 05:13 Lymphocytes # 1.8 K/mcL (0.6-4.6) 08/14/17 05:13 Monocytes # 0.6 K/mcL (0.0-1.3) 08/14/17 05:13 Eosinophils # 0.1 K/mcL (0.0-0.6) 08/14/17 05:13 Basophils # 0.0 K/mcL (0.0-0.2) 08/14/17 05:13 Sodium 141 mEq/L (136-145) 08/13/17 04:09 Potassium 3.7 mEq/L (3.5-4.5) 08/13/17 04:09 Chloride 105 mEq/L (98-109) 08/13/17 04:09 Carbon Dioxide 28 mEq/L (19-29) 08/13/17 04:09 BUN 15 mg/dL (8-26) 08/13/17 04:09 Creatinine 0.80 mg/dL (0.72-1.25) 08/13/17 04:09 Est GFR ( Amer) > 60 (> 60) 08/13/17 04:09 Est GFR (Non-Af Amer) > 60 (> 60) 08/13/17 04:09 BUN/Creatinine Ratio 19 (6-26) 08/13/17 04:09 Glucose 91 mg/dL (70-99) 08/13/17 04:09 POC Glucose 77 (58-89) 08/14/17 11:22 Calculated Osmolality 292 (280-300) 08/13/17 04:09 Calcium 8.9 mg/dL (8.6-10.8) 08/13/17 04:09 Total Bilirubin 2.2 mg/dL (0.2-1.2) H 08/14/17 05:13 Direct Bilirubin 0.8 mg/dL (0.0-0.5) H 08/14/17 05:13 Indirect Bilirubin 1.4 mg/dL (0.0-1.2) H 08/14/17 05:13 AST 30 Units/L (5-34) 08/14/17 05:13 ALT 138 Units/L (0-55) H 08/14/17 05:13 Alkaline Phosphatase 105 Units/L (38-126) 08/14/17 05:13 Serum Total Protein 6.3 g/dL (6.0-8.3) 08/14/17 05:13 Albumin 3.4 g/dL (3.5-5.0) L 08/14/17 05:13 Globulin 2.9 g/dL (2.4-3.5) 08/14/17 05:13 Albumin/Globulin Ratio 1.2 (1.1-2.2) 08/14/17 05:13 Triglycerides 97 mg/dL (< 150) 08/13/17 04:09 Cholesterol 149 mg/dL (< 200) 08/13/17 04:09 LDL Cholesterol, Calc 103 mg/dL (0-99) H 08/13/17 04:09 VLDL Cholesterol, Calc 19 mg/dL (< 31) 08/13/17 04:09 HDL Cholesterol 27 mg/dL (40-59) L 08/13/17 04:09 Cholesterol/HDL Ratio 5.5 (0-4.9) H 08/13/17 04:09 Amylase 109 Units/L (25-125) 08/14/17 05:13 Lipase 68 Units/L (8-78) 08/14/17 05:13 Urine Color Rosa (Yellow) A 08/12/17 19:25 Urine Clarity Cloudy (Clear) A 08/12/17 19:25 Urine pH 6.0 pH Units (5.0-8.0) 08/12/17 19:25 Ur Specific [place] 1.024 (1.010-1.025) 08/12/17 19:25 Urine Protein Trace mg/dL (Neg-Trace) 08/12/17 19:25 Urine Glucose (UA) Normal mg/dL (Normal) 08/12/17 19:25 Urine Ketones Trace mg/dL (Negative) H 08/12/17 19:25 Urine Blood Negative (Negative) 08/12/17 19:25 Urine Nitrite Negative (Negative) 08/12/17 19:25 Urine Bilirubin Small (Negative) H 08/12/17 19:25 Urine Urobilinogen Normal mg/dL (Normal) 08/12/17 19:25 Ur Leukocyte Esterase Trace (Negative) H 08/12/17 19:25 Urine Microscopic RBC 0-3 per hpf (0-3) 08/12/17 19:25 Urine Microscopic WBC 0-3 per hpf (0-3) 08/12/17 19:25 Ur Squamous Epith Cells None Seen per lpf (None-Few) 08/12/17 19:25 Urine Bacteria None Seen per hpf (None-Few) 08/12/17 19:25 Hyaline Casts None Seen per lpf (None-Few) 08/12/17 19:25 Urine Mucus Many (Few) H 08/12/17 19:25 Ur Culture Indicated? YES (NO) A 08/12/17 19:25 Impressions Gallbladder Ultrasound 08/12/17 19:26 IMPRESSION: 1. Cholelithiasis and gallbladder wall thickening without additional secondary findings of cholecystitis. Consider further evaluation with a nuclear medicine hepatobiliary scan if there are clinical findings of cholecystitis. 2. Bowel gas largely obscures the pancreas. The small portion of visualized pancreas has heterogeneous parenchyma, a finding that can be seen with pancreatitis. 3. Minimal intrahepatic biliary dilation without extrahepatic biliary dilation. 4. Mild hepatic steatosis. D/ / Samuel Ervin MD / Samuel Ervin MD Interpreting Provider: Samuel Ervin MD Anesthesia Exam Vital Signs Temp Pulse Resp BP Pulse Ox 08/14/17 11:23 98.8 F 79 16 149/97 95 08/14/17 06:44 97.8 F 87 18 149/96 97 08/14/17 04:35 98.9 F 76 15 146/89 97 08/14/17 00:02 98.9 F 81 15 149/86 94 08/13/17 20:29 99.1 F 76 15 155/92 95 08/13/17 15:18 98.4 F 78 16 153/98 95 Intake and Output 08/13/17 08/14/17 08/14/17 23:59 07:59 15:59 Intake Total 1000 / 1000 1000 / 1000 Output Total 0 / 0 900 / 900 Balance 1000 / 1000 100 / 100 Intake: IV Fluids 1000 / 1000 1000 / 1000 0.9 % Sodium Chloride 1,000 ML 1000 / 1000 1000 / 1000 @ 100 mls/hr IVC .Q10H [facility]ZY Rx#: [id number] Oral 0 / 0 0 / 0 Output: Urine 0 / 0 900 / 900 Other: Weight 106.9 kg Blood Glucose* 82 77 Patient Weight 08/14/17 23:59 Weight 106.9 kg - HEENT Pupil (Motor): Pupils equal, EOMI Mallampati: III Teeth: Normal Oral Opening: Greater than 3 - SEPTIC T[employer] SERVICE TECHNICIAN LOC: Oriented SE[employer] T[employer] SERVICE TECHNICIAN Motor: Normal RUE, Normal LUE, Normal RLE, Normal LLE, Normal Face SE[employer]IC TANK SERVICE TECHNICIAN Sensory: Normal: RUE, LUE, RLE, LLE, Face - Cardiac Rhythm: Regular Murmur: None JVD: No - Pulmonary Breath Sounds: bilateral Clear Respiratory Effort: Symmetrical Anesthesia Assess/Plan ASA Score: 2 Modified Hi Scale for Level of Consciousness: Cooperative, oriented, and tranquil Anesthetic Plan: General Monitoring Plan: Standard Monitors Recovery Plan: PACU Anes Supervising Prov Stmt: Pt seen/evaluated, R&B Discussed, questions anwswered and consent obtained. Maral Sorto MD
[2017-08-14] MEDS ORDERED: Acetaminophen IV 1,000 MG/100 ML INFUS..BTL ONE (12:21)
[2017-08-14] MEDS ORDERED: *HR* Promethazine 25 MG/ML VIAL IVP PRN (12:53)
[2017-08-14] MEDS ORDERED: Dexamethasone 4 MG/ML VIAL ONE (12:53)
[2017-08-14] MEDS ORDERED: Ondansetron 4 MG/2 ML VIAL ONE (12:53)
[2017-08-14] MEDS ORDERED: *HR* Labetalol 20 MG/4 ML SYRINGE IVP PRN (12:53)
[2017-08-14] MEDS ORDERED: Neostigmine Methylsulfate 3 MG/3 ML SYRINGE ONE (12:55)
--- NOTE | 2017-08-14 13:35 | Internal Med Progress Note ---
Date of Encounter: 08/14/17 Time of Encounter: 09:45 - Assessment and plan (1) Pancreatitis Current Visit: Yes Status: Acute Assessment and plan: Nothing by mouth currently. Pain is improving. Lipase level improving. Plan for laparoscopic cholecystectomy today. Moderate risk for complications. Qualifiers: Chronicity: acute Pancreatitis type: biliary Acute pancreatitis complication: no infection or necrosis Qualified Code(s): K85.10 - Biliary acute pancreatitis without necrosis or infection (2) Cholelithiasis Current Visit: Yes Status: Acute Qualifiers: Cholelithiasis location: bile duct Cholecystitis presence: without cholecystitis Biliary obstruction: without biliary obstruction Qualified Code(s): K80.50 - Calculus of bile duct without cholangitis or cholecystitis without obstruction (3) DVT prophylaxis Current Visit: Yes Status: Acute Assessment and plan: With subcutaneous heparin - Subjective Interval history: Patient is doing well this morning. Denies any abdominal pain at this time. Tolerating clear liquid diet. Has been nothing by mouth for scheduled laparoscopic cholecystectomy today - Constitutional Vitals: Temp Pulse Resp BP Pulse Ox 98.8 F 79 16 149/97 95 08/14/17 11:23 08/14/17 11:23 08/14/17 11:23 08/14/17 11:23 08/14/17 11:23 General appearance: Present: cooperative, A&O X 3, no acute distress, answers questions appropriately - Respiratory Respiratory exam: Present: CTAB. Absent: accessory muscle use, rales, rhonchi, wheezes - Cardiovascular Cardiovascular exam: Present: RRR, +S1, +S2. Absent: diastolic murmur, gallop, rubs, systolic murmur - GI/Abdominal GI/Abdominal exam: Present: normal bowel sounds, soft, no peritoneal signs. Absent: distended, tenderness - Neurological Exam Neurological exam: Present: alert, oriented X3, no focal deficits. Absent: facial droop, speech deficit - Skin Skin exam: Present: dry, intact Internal Medicine: Result - Labs CBC & Chem 7: 08/14/17 05:13 08/13/17 04:09 Labs: Short CBC 08/14/17 Range/Units 05:13 WBC 7.7 (4.3-11.1) K/mcL Hgb 14.0 (12.9-16.9) g/dL Hct 40.3 (37.5-50.1) % Plt Count 184 (140-400) K/mcL Neutrophils # 5.2 (1.6-8.9) K/mcL Liver Function 08/14/17 Range/Units 05:13 Total Bilirubin 2.2 H (0.2-1.2) mg/dL Direct Bilirubin 0.8 H (0.0-0.5) mg/dL AST 30 (5-34) Units/L ALT 138 H (0-55) Units/L Alkaline Phosphatase 105 (38-126) Units/L Albumin 3.4 L (3.5-5.0) g/dL Consult Discharge Plan - Plan Referrals: Mohit Bowens MD [Primary Care Provider] -
[2017-08-14] MEDS ORDERED: *HR* HYDROmorphone 2 MG/ML SYRINGE ONE (13:40)
--- NOTE | 2017-08-14 14:39 | Operative Note ---
Date of procedure: 08/14/17 Pre-op diagnosis: gallstone pancreatitis Post-op diagnosis: same (and acute cholecystitis) Procedure: Laparoscopic cholecystectomy Complications: none immediate Anesthesia: GETA, local Local Anesthetics: 0.5% Sensorcaine HCL SubQ (cc) (30), Isovue 300 Intravenous ( cc) (30) Surgeon: Bibi Anders Partition Assembler: Roopa Lai Estimated blood loss (cc): 30 Specimen: gallbladder and stones Condition: stable Disposition: PACU Procedure in Detail: The patient was brought into the operating suite and placed supine on the operating table. Sign-in was performed and everyone was in agreement. Anesthesia was induced and patient was endotracheally intubated by anesthesia without incident and they also placed an OG tube. The abdomen was prepped and draped in the usual sterile fashion. A timeout was performed again everyone was in agreement. A supraumbilical incision was made through the skin into the subcutaneous tissue with an 11 blade. Towel clamps were placed on either side of the umbilicus for retraction. S retractors were used to dissect down to the anterior abdominal wall linea alba fascia. A Veress needle was placed through this incision and a water drop test confirmed placement and the abdomen was insufflated. The abdomen was entered with a 5 mm 0 degree laparoscope on a 5 mm Optiview trocar. The area and entry was visualized was no bleeding and no apparent bowel injury. A 5 mm subxiphoid port was placed under direct visualization after first incising the skin with an 11 blade. A right upper quadrant subcostal position midclavicular line 5 mm port was placed under direct visualization after first incising skin with 11 blade. The laparoscope was placed in this and we exchanged the supraumbilical port for a 12 mm port under direct visualization. The last 5 mm port was placed in the right upper quadrant subcostal position anterior axillary line after first incising the skin with an 11 blade. The patient was placed in steep reverse Trendelenburg left side down position. The dome of the gallbladder was grasped and retracted cephalad. The gallbladder wall was extremely thick and difficult to grab. The gallbladder itself was extremely tense. Using the laparoscopic aspirator we were unable to aspirate any fluid from the gallbladder to try to decrease intenseness. Omental adhesions to the body and infundibulum of the gallbladder were taken down bluntly with the [place]. The infundibulum was grasped and retracted laterally. Using the [place] and [place] we dissected out the cystic duct and cystic artery. A 5 mm Hemoclip was placed proximally on the cystic artery. A 5 mm metal Hemoclip was placed proximally on the cystic duct. The cystic duct was partially transected with curved scissors. Using the Oropeza clamp, the cholangiocatheter was introduced into the partially transected cystic duct with the [place]. A metal 5 mm hemoclip was placed across the proximal cystic duct and the cholangiocatheter. The catheter flushed somewhat easily. The patient was placed in Trendelenberg position. Cholangiograms were obtained showing contrast up into the left and right intrahepatic ducts down through the common hepatic and common bile duct into the duodenum. There is a vague opacity at the distally, bile duct which radiology confirmed could be a stone. 30 mL of Isovue was used for the cholangiograms patient was returned to reverse Trendelenburg left side down position. The clip on the cholangiocatheter and proximal cystic duct was removed as well as the cholangiocatheter. Two 5 mm hemoclips were placed proximally on the cystic duct and it was transected with curved scissors. Another 5 mm hemoclip was placed proximally on the cystic artery one distally and it was transected with curved scissors. The gallbladder was removed off the cystic plate with the Bovie which was very difficult due to the thickness and intense inflammation of the gallbladder wall. There was inadvertent entry into the gallbladder with spillage of many stones. Once the gallbladder was removed off the cystic plate in its entirety was placed in a laparoscopic Endo Catch bag and removed via the umbilical goal incision. Another Endo Catch bag was placed at the supraumbilical incision site the edge of the gallbladder was lifted with the suction and the bag was used to scoop out a significant number of stones, which were removed along with the bag via the supraumbilical incision site. The subxiphoid 5 mm port was exchanged for a 10 mm port. Using the stone scoop and the grasper with teeth stones were removed from the right upper quadrant and beneath the liver. Any bleeding points were stopped with the Bovie. The gallbladder was placed in a laparoscopic Endo Catch bag and removed via the supraumbilical incision site. The inferior edge of the liver was bluntly retracted cephalad and the cystic plate was copiously irrigated with sterile saline. There did not appear to be any further stones within the abdominal cavity, none were seen obviously lying on the omentum, none floated up in the irrigation. Any bleeding points at the cystic plate were stopped with the Bovie. There was no bleeding or apparent bile leak from the cystic plate and the clips on the cystic artery and duct were intact. All irrigation was suctioned free from the abdomen. All insufflation was suctioned free from the abdomen and the ports removed. The abdominal wall at the supraumbilical and subxiphoid incision site was closed with a 0 Vicryl [id number] stitch. 30 mL of 0.5% Marcaine was injected subcutaneously at the 4 port sites. The skin at the two 5 mm port sites were closed with 4-0 Monocryl interrupted subcuticular stitches. The skin at the supraumbilical and subxiphoid incision sites were closed with a 4-0 Monocryl running subcuticular stitch. Steri-Strips were applied to all wounds. The patient was awoken in the operating suite having tolerated the procedure well and were taken to PACU in stable condition after all lap and ensuring counts were correct at the end of the case.
[2017-08-14] MEDS: *HR* HYDROmorphone (PF) 1 MG/ML SYRINGE IVP PRN ×5 (14:47→23:53)
[2017-08-14] MEDS ORDERED: Gabapentin 300 MG CAPSULE PO ONE (15:12)
[2017-08-14] MEDS ORDERED: cloNIDine HCl 0.1 MG TABLET PO ONE (15:12)
[2017-08-14] MEDS ORDERED: cloNIDine HCl 0.1 MG TABLET ONE (15:14)
[2017-08-14] MEDS ORDERED: Gabapentin 300 MG CAPSULE ONE (15:14)
[2017-08-14] MEDS ORDERED: Ondansetron 4 MG/2 ML VIAL IVP PRN (16:00)
[2017-08-14] MEDS ORDERED: Naloxone 0.4 MG/ML INJ IVP PRN (16:00)
[2017-08-14] MEDS: cefOXitin 2,000 MG in Water for inj. (sterile) 10 ML IVP SCH ×2 (16:41→23:54)
--- NOTE | 2017-08-14 16:46 | Anesthesia Evaluation Post Op ---
Date of Encounter: 08/14/17 Time of Encounter: 15:40 - Vital Signs Vital Signs: Vital Signs/O2 Sat/Glucose, Most Current Temp Pulse Resp BP Pulse Ox 08/14/17 15:50 97.4 F L 79 16 138/82 96 08/14/17 15:37 97.7 F 80 12 135/92 98 08/14/17 15:27 78 12 130/88 97 08/14/17 15:17 72 12 137/93 97 08/14/17 15:07 97.1 F L 73 12 138/88 97 08/14/17 14:57 87 12 133/86 99 08/14/17 14:47 83 12 133/92 95 08/14/17 14:37 97.8 F 86 12 127/90 98 - Lungs Lungs: Clear Ascult./Percussion - Airway Airway: Non-obstructed - Cardiovascular Regular Rate - Mental Status Mental Status: Alert & Oriented, Answers Appropriately - Pain Pain Scale: 4 Pain Scale used: Numeric (1 - 10) - Nausea Vomiting Nausea Vomiting: Not Present - Hydration Hydration: Tolerates oral liquids, Has not voided - Discharge PostOp Status: Transfer Patient to floor Anes Supervising Prov Stmt: Pt seen/evaluated, VSS And pt has met criteria for discharge to home. - MD Macario
[2017-08-14] MEDS: *HR* OxyCODONE/APAP 5/325 TABLET PO PRN (19:01)
[2017-08-15] MEDS: 0.9 % Sodium Chloride 1,000 ML IVC SCH (02:46)
[2017-08-15] MEDS: *HR* HYDROmorphone (PF) 1 MG/ML SYRINGE IVP PRN ×2 (02:47→11:18)
[2017-08-15] MEDS: *HR* OxyCODONE/APAP 5/325 TABLET PO PRN ×3 (05:14→19:10)
[2017-08-15] MEDS: *HR* Heparin 5,000 UNIT/ML VIAL SQ SCH ×3 (05:15→16:52)
[2017-08-15 07:30] LABS: Basophils % 0.1 %; Eosinophils % 0.1 %; Hematocrit 38.2 % (37.5-50.1); Hemoglobin 13.4 g/dL (12.9-16.9); Immature Granulocytes % 0.8 % (0-4); Mean Corpuscular HGB Conc 35.1 g/dL (31.6-35.5); Mean Corpuscular Hemoglobin 30.3 pg (28.0-33.3); Mean Corpuscular Volume 86.4 fL (83.0-100.0); Mean Platelet Volume 10.2 fL (9.4-12.4); Monocytes # 0.7 K/mcL (0.0-1.3); Monocytes % 6.5 %; Neutrophils # 8.8 K/mcL (1.6-8.9); Platelet Count 204 K/mcL (140-400); Red Blood Count 4.42 M/mcL (4.19-5.50); Segmented Neutrophils % 83.5 %
[2017-08-15 07:46] LABS: Albumin 3.1 g/dL (3.5-5.0); Bilirubin,Direct 0.4 mg/dL (0.0-0.5); Bilirubin,Indirect 1.2 mg/dL (0.0-1.2); Globulin 3.2 g/dL (2.4-3.5); Total Protein 6.3 g/dL (6.0-8.3)
[2017-08-15 08:01] LABS: Bilirubin,Total 1.6 mg/dL (0.2-1.2)
[2017-08-15] MEDS: cefOXitin 2,000 MG in Water for inj. (sterile) 10 ML IVP SCH (08:30)
[2017-08-15] MEDS: Pantoprazole 40 MG VIAL IVP SCH (08:32)
--- NOTE | 2017-08-15 12:20 | Internal Med Progress Note ---
Date of Encounter: 08/15/17 Time of Encounter: 08:15 - Assessment and plan (1) Pancreatitis Current Visit: Yes Status: Acute Assessment and plan: Gallstone pancreatitis. Status post laparoscopic cholecystectomy. Doing well postprocedure. Surgery recommends another 24 hours of IV antibiotics. Plan for discharge tomorrow if patient continues to clinically improve. Moderate risk for complications. Qualifiers: Chronicity: acute Pancreatitis type: biliary Acute pancreatitis complication: no infection or necrosis Qualified Code(s): K85.10 - Biliary acute pancreatitis without necrosis or infection (2) Cholelithiasis Current Visit: Yes Status: Acute Assessment and plan: Status post laparoscopic cholecystectomy Qualifiers: Cholelithiasis location: bile duct Cholecystitis presence: without cholecystitis Biliary obstruction: without biliary obstruction Qualified Code(s): K80.50 - Calculus of bile duct without cholangitis or cholecystitis without obstruction (3) DVT prophylaxis Current Visit: Yes Status: Acute - Subjective Interval history: Patient is awake and alert. Mild abdominal discomfort. Denies any other complaints at this time. No fever or chills reported overnight. Underwent laparoscopic cholecystectomy yesterday. Has been doing well postprocedure. - Constitutional Vitals: Temp Pulse Resp BP Pulse Ox 98.2 F 72 14 148/98 96 08/15/17 10:40 08/15/17 10:40 08/15/17 10:40 08/15/17 10:40 08/15/17 10:40 General appearance: Present: cooperative, mild distress, A&O X 3, no acute distress, answers questions appropriately - Neck Neck exam general surgery: Present: supple, trachea midline. Absent: lymphadenopathy - Respiratory Respiratory exam: Present: CTAB. Absent: accessory muscle use, rales, rhonchi, wheezes - Cardiovascular Cardiovascular exam: Present: RRR, +S1, +S2. Absent: diastolic murmur, gallop, rubs, systolic murmur - GI/Abdominal GI/Abdominal exam: Present: normal bowel sounds, soft, tenderness (Right upper quadrant at surgical site), no peritoneal signs. Absent: distended - Extremities Exam Extremities exam: Present: warm, radial pulses palpable and symmetrical. Absent : calf tenderness, cyanotic, pedal edema Internal Medicine: Result - Labs CBC & Chem 7: 08/15/17 06:23 08/13/17 04:09 Labs: Short CBC 08/15/17 Range/Units 06:23 WBC 10.5 (4.3-11.1) K/mcL Hgb 13.4 (12.9-16.9) g/dL Hct 38.2 (37.5-50.1) % Plt Count 204 (140-400) K/mcL Neutrophils # 8.8 (1.6-8.9) K/mcL Liver Function 08/15/17 Range/Units 06:23 Total Bilirubin 1.6 H (0.2-1.2) mg/dL Direct Bilirubin 0.4 (0.0-0.5) mg/dL AST 91 H (5-34) Units/L ALT 166 H (0-55) Units/L Alkaline Phosphatase 96 (38-126) Units/L Albumin 3.1 L (3.5-5.0) g/dL - Impressions Impressions Cholangiogram,Operative 08/14/17 00:00 IMPRESSION: Filling defect within the CBD just before the insertion with the duodenum may represent a CBD stone or gas bubble. Please refer to operative report for more details. Findings were discussed with the OR circulating nurse who conveyed the findings to Dr. Anders at 1:28 p.m. on 08/14/2017. D/ / 08/14/2017 13:35:58 Wallace Bernal MD / Kerline Robb Interpreting Provider: Wallace Bernal MD - VTE Documentation of Mechanical Device: Intermittent pneumatic compression device Consult Discharge Plan - Plan Referrals: Mohit Bowens MD [Primary Care Provider] -
--- NOTE | 2017-08-15 13:40 | General Surgery Progress Note ---
Date of Encounter: 08/15/17 Time of Encounter: 08:30 - Assessment and Plan (1) Gallstone pancreatitis Current Visit: Yes Status: Acute lfts trending down prn pain /antiemetic control gi/dvt prophylasix am labs serial abdominal exams (2) S/P laparoscopic cholecystectomy Current Visit: Yes Status: Acute tolerating clears, advance to regular, if still tolerating ok to dc will need lfts drawn in 4 days discussed cholangiograms with patient, if lfts still elevated in several days will have see GI for possible ERCP (3) Elevated LFTs Current Visit: Yes Status: Acute trending down see s/p lap cholecystetomy Subjective Patient reports: no new complaints, feels better, still having pain, pain is less, tolerating liquids well Objective Vital Signs - Last 8 Hours Temp Pulse Resp BP Pulse Ox 08/15/17 10:40 98.2 F 72 14 148/98 96 08/15/17 06:56 98.2 F 86 14 115/70 96 Intake and Output 08/15/17 08/15/17 08/15/17 00:59 07:59 15:59 Intake Total 565 / 565 Output Total 800 / 800 Balance -235 / -235 Intake: IV Fluids 0.9 % Sodium Chloride 1,000 ML @ 100 mls/hr IVC .Q10H [facility] Rx#: [id number] Mefoxin 2,000 MG In Water for inj. (sterile) 10 ML @ 150 mls/ hr IVP Q8HR [facility]ZY Rx#:[id number] Oral 565 / 565 Output: Urine 800 / 800 Other: Meal Lunch Percent of Meal Consumed 60% Weight Patient Weight 08/15/17 22:59 Weight 106.4 kg - General physical appearance well developed, well nourished, no distress - Eyes PERRL, normal ocular movement - ENT normal mucosa, normocephalic - Respiratory normal expansion, normal respiratory effort - Cardiovascular Cardiovascular exam: Present: RRR - Abdomen Abdomen: Present: bowel sounds present, soft, tender (appropriate post op tenderness). Absent: guarding, rebound - Incision Incision: Present: clean and dry, intact - Integumentary no rash, no growths - Neurologic CN 2-12 grossly intact - Musculoskeletal normal posture - Psychiatric oriented to time, oriented to person, oriented to place, speech is normal, memory intact - Labs 08/15/17 06:23 11/03/17 04:09 Diabetes panel 08/15/17 Range/Units 06:23 AST 91 H (5-34) Units/L ALT 166 H (0-55) Units/L Alkaline Phosphatase 96 (38-126) Units/L Albumin 3.1 L (3.5-5.0) g/dL Calcium panel 08/15/17 Range/Units 06:23 Albumin 3.1 L (3.5-5.0) g/dL Adrenal panel 08/15/17 Range/Units 06:23 Total Bilirubin 1.6 H (0.2-1.2) mg/dL AST 91 H (5-34) Units/L ALT 166 H (0-55) Units/L Alkaline Phosphatase 96 (38-126) Units/L Albumin 3.1 L (3.5-5.0) g/dL - VTE Documentation of Mechanical Device: Intermittent pneumatic compression device Consult Discharge Plan - Plan Referrals: Mohit Bowens MD [Primary Care Provider] -
[2017-08-15] MEDS ORDERED: Temazepam 15 MG CAPSULE PO PRN (16:54)
[2017-08-16] MEDS: *HR* OxyCODONE/APAP 5/325 TABLET PO PRN ×3 (00:16→10:16)
[2017-08-16 04:12] LABS: Basophils # 0.1 K/mcL (0.0-0.2); Basophils % 0.6 %; Eosinophils # 0.1 K/mcL (0.0-0.6); Eosinophils % 0.6 %; Hematocrit 39.3 % (37.5-50.1); Hemoglobin 13.7 g/dL (12.9-16.9); Immature Granulocytes % 0.7 % (0-4); Lymphocytes # 1.5 K/mcL (0.6-4.6); Lymphocytes % 18.4 %; Mean Corpuscular HGB Conc 34.9 g/dL (31.6-35.5); Mean Corpuscular Hemoglobin 30.6 pg (28.0-33.3); Mean Corpuscular Volume 87.7 fL (83.0-100.0); Mean Platelet Volume 9.8 fL (9.4-12.4); Monocytes # 0.6 K/mcL (0.0-1.3); Monocytes % 7.7 %; Neutrophils # 5.8 K/mcL (1.6-8.9); Platelet Count 207 K/mcL (140-400); Red Blood Count 4.48 M/mcL (4.19-5.50); Red Cell Distribution Width 13.2 % (11.5-14.5)
[2017-08-16 04:29] LABS: Alanine Aminotransferase 137 Units/L (0-55); Albumin 3.1 g/dL (3.5-5.0); Alkaline Phosphatase 84 Units/L (38-126); Aspartate Amino Transferase 54 Units/L (5-34); BUN/Creatinine Ratio 18 (6-26); Bilirubin,Direct 0.6 mg/dL (0.0-0.5); Bilirubin,Indirect 0.7 mg/dL (0.0-1.2); Bilirubin,Total 1.3 mg/dL (0.2-1.2); Blood Urea Nitrogen 14 mg/dL (8-26); Calcium 8.9 mg/dL (8.6-10.8); Carbon Dioxide 26 mEq/L (19-29); Chloride 103 mEq/L (98-109); Globulin 3.2 g/dL (2.4-3.5); Glucose 85 mg/dL (70-99); Osmolality,Calculated 288 (280-300); Phosphorous 1.9 mg/dL (2.3-4.7); Potassium 3.6 mEq/L (3.5-4.5); Sodium 139 mEq/L (136-145); Total Protein 6.3 g/dL (6.0-8.3); eGFR For African Americans > 60 (> 60); eGFR For Non-African Americans > 60 (> 60)
[2017-08-16] MEDS: *HR* Heparin 5,000 UNIT/ML VIAL SQ SCH (05:45)
--- NOTE | 2017-08-16 07:29 | Discharge Summary ---
Date of Encounter: 08/16/17 Time of Encounter: 07:28 - Discharge Diagnosis (1) Pancreatitis Priority: Primary Status: Acute Qualifiers: Chronicity: acute Pancreatitis type: biliary Acute pancreatitis complication: no infection or necrosis Qualified Code(s): K85.10 - Biliary acute pancreatitis without necrosis or infection (2) Cholelithiasis Priority: Secondary Status: Acute Qualifiers: Cholelithiasis location: bile duct Cholecystitis presence: without cholecystitis Biliary obstruction: without biliary obstruction Qualified Code(s): K80.50 - Calculus of bile duct without cholangitis or cholecystitis without obstruction (3) DVT prophylaxis Priority: Secondary Status: Acute - Discharge Medications Prescriptions: OxyCODONE/APAP 5/325 [Percocet 5/325 MG] 1 each PO Q4HR PRN #14 tablet PRN Reason: Pain Home Medications: OxyCODONE/APAP 5/325 [Percocet 5/325 MG] 1 each PO Q4HR PRN #14 tablet 08/16/17 [Rx] Allergies/Adverse Reactions: 3 Allergy/AdvReac Type Severity Reaction Status Date / Time No Known Allergies Allergy Verified 08/12/17 18:06 Date of admission: 08/13/17 02:57 Primary care physician: Mohit Bowens MD Discharging clinician: Lico Krueger Anticipated date of discharge: 08/16/17 - Patient Status Disposition: Home, Self-Care Condition: Good Functional capacity at discharge: independent ambulation Overall status at discharge: patient is back to baseline - Ambulatory Orders Ambulatory Orders: Hepatic Panel [CHEM] Time Frame: 3 Days, Facility: [facility] , Location: Lab - Discharge Instructions Instructions: Pancreatitis (DC) Follow Up With: Mohit Bowens MD [Primary Care Provider] - (in 1-2 weeks) Bibi Anders MD [Partnered Physician] - (in 1 week for follow up) - Diet and Activity Activity: increase activity as tolerated Diet: advance to your usual diet, low fat, low cholesterol, low salt diet Hospital course: Mr. Collado is a 37 year old male patient with no significant past medical history who presented to the ER with complaints of abdominal pain. He was diagnosed with acute pancreatitis. Ultrasound of the abdomen suggested presence of cholelithiasis. She was treated with IV fluids. Kept nothing by mouth. Given intravenous pain medications. Surgery was consulted for recommendations regarding patient's cholelithiasis as he appeared to be suffering from gallstone pancreatitis. Per their recommendation, patient underwent laparoscopic cholecystectomy. Cholangiogram done intraoperatively showed a filling defect within the CBD just before insertion with duodenum. Liver functions were closely followed and they have been consistently improving. As her surgery recommends discharge at this time with outpatient follow-up. He will also undergo liver function tests in 3-4 days and if his enzymes are normal abdominal, he will follow up with GI. For now patient is awake and alert. Pain free. Tolerating oral diet. He will be discharged home today. - Time Spent with Patient Total time spent providing and/or coordinating discharge services: Less than 30 minutes (20 min) - Constitutional Vitals: Temp Pulse Resp BP Pulse Ox 98.8 F 87 14 124/75 96 08/16/17 04:33 08/16/17 04:33 08/16/17 04:33 08/16/17 04:33 08/16/17 04:33 General appearance: Present: cooperative, A&O X 3, no acute distress, answers questions appropriately - Eye Eye exam: Present: PERRL, conjuntiva pink, sclera anicteric - Respiratory Respiratory exam: Present: CTAB. Absent: accessory muscle use, rales, rhonchi, wheezes - Cardiovascular Cardiovascular exam: Present: RRR, +S1, +S2. Absent: diastolic murmur, gallop, rubs, systolic murmur - GI/Abdominal GI/Abdominal exam: Present: normal bowel sounds, soft, tenderness (RUQ ), no peritoneal signs. Absent: distended - VTE Documentation of Mechanical Device: Intermittent pneumatic compression device
[2017-08-16 07:33] VITALS: BP 127/75
[2017-08-16] MEDS: Pantoprazole 40 MG VIAL IVP SCH (09:00)
== END 2017-08-16 11:10 | disposition home or self-care (01) | DRG 418 ==
LOC: 3ANU 17:22 → EMEROO 17:22 → 3ANU 21:14
PROVIDERS: ADMIT Internal Medicine; ATTEND Internal Medicine